=== PATIENT | male | born 1990 | race Two or more races ===

== ENCOUNTER 2021-01-25 01:10 | Emergency (ER) | payer MEDICAID ==
[~2021-01-25 01:10] MED LIST: CYCL-1 PO; NO HOME MEDS; TRAM50TA2 PO
--- NOTE | 2021-01-25 01:17 | NUR ---
PATIENT WAS BIB EMS WITH ETOH INTOXICATION AND POSSIBLE ABDOMINAL INJURY. PATIENT BECAME BELLIGERENT IN E LOBBY AND DECIDED TO LEAVE BEFORE TRIAGE. DEPARTED FROM ER, AMBULATORY, ACCOMPANIED BY SECURITY.
== END 2021-01-25 01:20 | disposition left against medical advice (07) ==
LOC: ER 01:11
DX: Z53.21 Procedure and treatment not carried out due to patient leaving prior to being seen by health care provider (principal)